=== PATIENT | male | born 1975 | race Caucasian/White ===

== ENCOUNTER 2017-05-27 09:25 | Emergency (ER) | payer MEDICARE, OTHER ==
[~2017-05-27] VITALS: Ht 167.6 cm; Wt 76.2 kg
[~2017-05-27 09:25] MED LIST: ANTIDEPRESSANT; Amoxicillin500 MG PO; BUSPAR; DIVA500ER; HYDACE5 PO; IBUP600 PO; LEVSOD50; PENVK500 PO
[2017-05-27] MEDS ORDERED: Catapres0.1 MG PO (10:02)
== END 2017-05-27 10:15 | disposition home or self-care (01) ==
LOC: ER 09:25
DX: Z76.0 Encounter for issue of repeat prescription (principal); F41.9 Anxiety disorder, unspecified; F79 Unspecified intellectual disabilities; Z88.5 Allergy status to narcotic agent; Z88.8 Allergy status to other drugs, medicaments and biological substances; Z91.041 Radiographic dye allergy status; Z79.899 Other long term (current) drug therapy
CPT/HCPCS: 99281